=== PATIENT | male | born 1940 | race Caucasian/White ===

== ENCOUNTER 2023-03-05 18:07 | Observation (INO) | payer OTHER, MEDICARE ==
[~2023-03-05] VITALS: Ht 165.1 cm; Wt 52.3 kg
[2023-03-05] VITALS (9 sets, daily range): BP systolic 117–157; BP diastolic 39–109
[~2023-03-05 18:07] MED LIST: LIPITOR10 M1 PO; LISINOPRIL10 MG PO; LISINOPRIL20 MG PO; LOVASTATIN10 M1 PO; LOVASTATIN20 M1 PO; LOVASTATIN20 MG PO
[2023-03-05] MEDS ORDERED: AMLODIPINE BESYL5 MG PO (18:20)
[2023-03-05] MEDS ORDERED: SIMVASTATIN40 MG PO (18:20)
[2023-03-05 18:39] LABS: BASO% 0.6 % (0-3); EOS% 4.4 % (0-8); IMMATURE GRANULOCYTES 0.2 % (0.0-5.0); LYMPH% 25.4 % (15-41); MEAN CELL VOLUME 92.2 fL CALC (80.0-100.0); MEAN CORPUSCULAR HGB 31.1 pG CALC (26.0-32.0); MEAN CORPUSCULAR HGB CONC 33.7 g/dL CAL (32.0-36.0); MONO% 7.8 % (2-13); NEUT# 5.08 thou/uL (1.82-7.42); NEUT% 61.6 % (42-76); RED BLOOD COUNT 3.73 mill/uL (4.70-6.10)
[2023-03-05 18:42] LABS: HEMOGLOBIN 11.6 g/dl (14.0-18.0)
[2023-03-05 18:43] LABS: HEMATOCRIT 34.4 % (39.0-50.0)
[2023-03-05 18:49] LABS: ALBUMIN 3.7 g/dL (3.2-5.0); ALKALINE PHOSPHATASE 64 u/l (38-126); BUN 22 mg/dL (8-23); BUN/CREATININE RATIO 20 (12-20 (CALC)); CARBON DIOXIDE 27 mmol/l (22-30); CHLORIDE 97 mmol/l (95-108); CREATININE 1.1 mg/dL (0.7-1.3); ETHYL ALCOHOL 0 mg/dl (0-30); GFR FOR AFR.AMER. > 60 ML/MIN (>=60 (CALC)); GFR OTHER RACES > 60 ML/MIN (>=60 (CALC)); SGOT/AST 26 u/l (19-48); SODIUM 127 mmol/l (137-146); TOTAL PROTEIN 6.1 g/dL (6.3-8.2)
[2023-03-05 18:52] LABS: ANION GAP 7 (6-22 (CALC)); BILIRUBIN, TOTAL 0.2 mg/dL (0.2-1.3)
[2023-03-05 20:31] LABS: CPK 67 u/l (55-170)
[2023-03-05 20:45] LABS: PROTHROMBIN TIME 9.9 SECONDS (9.0-12.5)
[2023-03-05 21:07] LABS: URINE BILIRUBIN - DIPSTICK Negative (NEGATIVE); URINE BLOOD DIPSTICK Trace-intact (NEGATIVE); URINE GLUCOSE - DIPSTICK Negative (NEGATIVE); URINE KETONE Negative (NEGATIVE); URINE LEUK ESTERASE Negative (NEGATIVE); URINE NITRITE - DIPSTICK Negative (Negative); URINE PROTEIN - DIPSTICK Negative (NEG-TRACE); URINE SPECIFIC GRAVITY 1.015; URINE UROBILINOGEN - DIPSTICK 0.2 E.U./dL (0.2)
[2023-03-05 21:08] LABS: URINE COLOR Yellow
[2023-03-06] VITALS (9 sets, daily range): BP systolic 136–180; BP diastolic 39–74
[2023-03-06 06:26] LABS: ALBUMIN 3.5 g/dL (3.2-5.0); ALKALINE PHOSPHATASE 74 u/l (38-126); ANION GAP 6 (6-22 (CALC)); BASO% 0.6 % (0-3); BUN 14 mg/dL (8-23); BUN/CREATININE RATIO 17 (12-20 (CALC)); CARBON DIOXIDE 27 mmol/l (22-30); CHLORIDE 101 mmol/l (95-108); CREATININE 0.8 mg/dL (0.7-1.3); EOS% 2.6 % (0-8); GFR FOR AFR.AMER. > 60 ML/MIN (>=60 (CALC)); GFR OTHER RACES > 60 ML/MIN (>=60 (CALC)); HEMOGLOBIN 11.9 g/dl (14.0-18.0); IMMATURE GRANULOCYTES 0.3 % (0.0-5.0); LYMPH% 23.6 % (15-41); MAGNESIUM 2.1 mg/dL (1.6-2.3); MEAN CELL VOLUME 93.5 fL CALC (80.0-100.0); MEAN CORPUSCULAR HGB 30.9 pG CALC (26.0-32.0); MEAN CORPUSCULAR HGB CONC 33.1 g/dL CAL (32.0-36.0); MONO% 8.1 % (2-13); NEUT# 4.41 thou/uL (1.82-7.42); NEUT% 64.8 % (42-76); POTASSIUM 4.6 mmol/l (3.5-5.1); RED BLOOD COUNT 3.85 mill/uL (4.70-6.10); RED CELL DISTRI WIDTH 13.3 % (11.5-15.5); SGOT/AST 26 u/l (19-48); SODIUM 129 mmol/l (137-146); TOTAL PROTEIN 5.7 g/dL (6.3-8.2)
[2023-03-06 06:27] LABS: BILIRUBIN, TOTAL 0.4 mg/dL (0.2-1.3)
== END 2023-03-06 14:53 | disposition home or self-care (01) | DRG 641 ==
LOC: ED 18:07 → ED-I 19:55 → ED 22:03 → MS2 22:13
PROVIDERS: Emergency Medicine; Internal Medicine; ADMIT Student in an Organized Health Care Education/Training Program; ATTEND Student in an Organized Health Care Education/Training Program
DX: E87.1 Hypo-osmolality and hyponatremia (principal); E83.51 Hypocalcemia; I10 Essential (primary) hypertension; J44.9 Chronic obstructive pulmonary disease, unspecified; I65.22 Occlusion and stenosis of left carotid artery; I44.7 Left bundle-branch block, unspecified; E78.5 Hyperlipidemia, unspecified; K21.9 Gastro-esophageal reflux disease without esophagitis; F17.200 Nicotine dependence, unspecified, uncomplicated
CPT/HCPCS: Q9967